=== PATIENT | male | born 1950 | race Caucasian/White ===

== ENCOUNTER 2020-09-27 11:20 | Emergency (ER) | payer MEDICARE ==
[2020-09-27] MEDS ORDERED: hydrOXYzine 25 MG TAB ONE (11:53)
[2020-09-27 12:19] LABS: #Eosinphils 0.1 thou/uL (0.0-0.7); #Lymphocytes 1.9 thou/uL (1.20-3.40); #Monocytes 0.7 thou/uL (0.11-0.59); #Neutrophils 6.7 thou/uL (1.40-6.50); %Basophils 0.3 % (0.0-1.0); %Eosinophils 1.2 % (0.0-10.0); %Lymphocytes 19.7 % (21.0-51.0); %Monocytes 7.2 % (0.0-10.0); %Neutrophils 71.6 % (42.0-75.0); Hemoglobin 16.2 g/dL (14.0-18.0); Mean Corpuscular HGB CONC 33.7 g/dL (32.0-36.0); Mean Corpuscular Hemoglobin 29.2 pg (27.0-31.0); Mean Corpuscular Volume 86.6 fL (78.0-98.0); Mean Platelet Volume 6.3 fL (7.4-10.4); Platelet Count 208 thou/uL (130-400); RBC Distribution Width 13.1 % (11.5-14.5); Red Blood Cell (RBC) Count 5.55 mill/uL (4.70-6.10); White Blood Cell (WBC) Count 9.4 thou/uL (4.8-10.8)
[2020-09-27 12:40] LABS: ALT (SGPT) 14 U/L (8-55); AST (SGOT) 18 U/L (5-34); Albumin 4.2 g/dL (3.4-4.8); Alkaline Phosphatase 69 U/L (40-110); Anion Gap 16 mmol/L (10-20); BUN (Urea Nitrogen) 10 mg/dL (8.4-25.7); Bilirubin, Total 0.8 mg/dL (0.2-1.2); Calc. Creatinine Clearance 0 mL/min (70-130); Calcium 9.6 mg/dL (7.8-10.44); Carbon Dioxide 26 mmol/L (23-31); Chloride 102 mmol/L (98-107); Estimated GFR-MDRD 72; Globulin 3.2 g/dL (2.4-3.5); Glucose 117 mg/dL (83-110); Protein, Total 7.4 g/dL (5.8-8.1); Sodium 140 mmol/L (136-145)
--- NOTE | 2020-09-27 12:45 | RAD ---
Frontal radiograph chest: 09/27/2020 COMPARISON: 07/11/2013 HISTORY: Unable to take a full breath, congestion FINDINGS: There is mild increased linear density in the left lung base, similar when compared to prio r imaging. No pneumothorax or pleural fluid. No focal consolidation or alveolar edema. IMPRESSION: No focal consolidation or alveolar edema.
[2020-09-27] MEDS ORDERED: Lorazepam 1 MG TAB ONE (13:15)
[2020-09-28 10:56] LABS: SARS-CoV-2 MS2 Positive; SARS-CoV-2 N Gene Negative; SARS-CoV-2 S Gene Negative; SARS-CoV-2 by NAA Not Detected (NotDetected); SARS-CoV-2 orf1ab Negative
== END 2020-09-27 13:36 | disposition home or self-care (01) ==
LOC: ERS 11:20
DX: F41.9 Anxiety disorder, unspecified (principal); Z20.828 Contact with and (suspected) exposure to other viral communicable diseases; I10 Essential (primary) hypertension; E78.00 Pure hypercholesterolemia, unspecified
CPT/HCPCS: 71045; 80053; 84484; 85025; 93005; 99285; U0003; 87635